=== PATIENT | male | born 1965 | race Caucasian/White ===

== ENCOUNTER 2016-07-27 18:05 | Observation (INO) | payer BC ==
[~2016-07-27] VITALS: Ht 190.5 cm; Wt 95.6 kg
--- NOTE | ~2016-07-27 | DS ---
PATIENT'S NAME: HERIBERTO BENITEZ [facility] AGE: 51 Y [address] ROOM: [place] [address] LOCATION: G3N ADMIT DATE: 07/27/2016 Discharge Summary DISCHARGE DATE: FAMILY PHYSICIAN: Momo Mandel MD ATTENDING PHYSICIAN: Momo Mandel FINAL DIAGNOSES: 1. Cellulitis, long finger, palmar surface, right hand, status post incision and drainage and washout, 07/27/2016, per Dr. Riley Lo. 2. Hypertension, essential. 3. Bradycardia. 4. Elevated TSH. We will workup as an outpatient. HOSPITAL COURSE: The patient was admitted with an infection in his involved finger. Please see history and physical. Please see consultative notes and operative note per Dr. Riley Lo, orthopedic surgeon. I see the patient today at dismissal. His finger is in a gauze wrap. He is doing well. His pain is controlled. He has received IV antibiotics since admission. If Dr. Lo feels the patient can be dismissed later today, the patient will go home and Dr. Lo will pick an antibiotic regimen. The patient will follow up with Dr. Lo and regarding infection and should see me back in a couple weeks. I am going to discuss his mild elevation of his TSH. MOMO MANDEL MD CONSTRUCTION SAFETY MANAGER/modl /[id number] d: 07/28/16 0904 t: 08/02/16 1835, DISCHARGE SUMMARY
--- NOTE | ~2016-07-27 | HP ---
PATIENT'S NAME: HERIBERTO BENITEZ [facility] AGE: 51 Y [address] ROOM: [address] [place], [place] [address] LOCATION: G3N ADMIT DATE: 07/27/2016 History & Physical DISCHARGE DATE: FAMILY PHYSICIAN: MOMO GILLIS MD ATTENDING PHYSICIAN: MOMO GILLIS DATE OF SERVICE: 07/27/2016 CHIEF COMPLAINT: Swollen sore right long finger. HISTORY OF PRESENT ILLNESS: Heriberto is a -oxnq-hra white male who is admitted at this time with a swollen, erythematous right long finger. Historically, the patient several months ago injured this area of his right long finger at the PIP joint. At that time, there was an injury to his fingers that broke the skin, but nothing else evolved. In the last 36 hours, he has developed erythema and swelling in the area of the PIP joint going proximal towards the MP joint of his right long finger. He saw me in the office this morning, the day of admission at approximately 10 a.m. At that time, he gave no history of MRSA, no history of new trauma. His immunizations are up to date, and he did not want to be admitted. So at that time, I did a plain film x-ray that showed no gas under the skin and no foreign body, no bony abnormality. Because of no history of MRSA, I gave him a gram of Rocephin and told him to follow up with me if he did not get better or if he did develop increasing pain or redness. He called me at the end of the day at approximately 5:30 in the evening stating that his pain was worse in the involved finger of the right hand. He sent me a picture that showed increasing erythema and swelling and a little bit of redness now, that was coming over the dorsal aspect of the right long finger MP joint. Because of that, I told him we should have him admitted to the hospital. Originally, I called Isai Huitron with the Orthopedic Surgeons to have him see the patient. After talking to the patient and after he was admitted, he wanted to see someone from [facility]. So I consulted Dr. Riley Lo and sent him a picture of the patient's finger both from the morning and the afternoon. Dr. Lo recommended that we get blood work and obtain an MRI to rule out an abscess or tendon involvement. The patient understands. PATIENT'S NAME: [facility] AGE: 51 Y [address] ROOM: [place] [address] LOCATION: [facility] ADMIT DATE: 07/27/2016 History & Physical DISCHARGE DATE: FAMILY PHYSICIAN: MOMO GILLIS MD ATTENDING PHYSICIAN: MOMO GILLIS After admission, the patient was seen by Dr. Lo, and Dr. Lo after reviewing the patient's MRI has taken the patient to the operating room this evening to wash out the area of the involved finger. Please see MRI report. CURRENT MEDICATIONS: He got Rocephin today. ALLERGIES: SEE NURSE'S NOTES. PREVIOUS OPERATIONS: See old records. SOCIAL HISTORY: Does not smoke. FAMILY HISTORY: Negative for problems with general anesthesia or bleeding disorder. REVIEW OF SYSTEMS: HEENT: Exam benign. NECK: Unremarkable. ENDOCRINE: No history of thyroid disease or diabetes mellitus. HEART: History of hypertension and bradycardia. GI: No recent nausea, vomiting, or diarrhea. : No dysuria or frequency. EXTREMITIES: As mentioned. NEUROLOGIC: No history of seizure or syncope. PHYSICAL EXAMINATION: GENERAL: Dark-haired male who appears his stated age, in no apparent distress. Oriented to person, place, and time. He is competent. HEENT: Exam shows pupils react to light. TMs not visualized. Posterior pharynx is clear. NECK: Unremarkable. Thyroid enlarged. LUNGS: Clear. HEART: No murmur. Regular rhythm. ABDOMEN: Benign. PELVIC AND RECTAL: Not done. EXTREMITIES: Right long finger as described above. No ascending signs of infection. NEUROLOGIC: Grossly intact. Mental status normal for age. PATIENT'S NAME: ELI, [facility] AGE: 51 Y [address] ROOM: [address] [address] LOCATION: [facility] ADMIT DATE: 07/27/2016 History & Physical DISCHARGE DATE: FAMILY PHYSICIAN: MOMO GILLIS MD ATTENDING PHYSICIAN: MOMO GILLIS ASSESSMENT: 1. Cellulitis and possible early abscess, right long finger palmar aspect between the MP joint and IP joint of the involved finger. 2. Hypertension, essential. 3. Bradycardia, asymptomatic. PLAN: As above. MD STEVAN BARTON/reilly /[id number] D: [id number] T: [id number] HISTORY & PHYSICAL
--- NOTE | ~2016-07-27 | OR ---
PATIENT'S NAME: HERIBERTO JOHNSON [facility] AGE: 51 Y [address] ROOM: [address] [place], [place] [address] LOCATION: G3N ADMIT DATE: 07/27/2016 OR/Procedure Report DISCHARGE DATE: FAMILY PHYSICIAN: MOMO GILLIS MD ATTENDING PHYSICIAN: MOMO GILLIS SURGEON: Riley Lo MD SOFTWARE SPECIALIST: None. DATE OF PROCEDURE: 07/27/2016 PREOPERATIVE DIAGNOSIS: Right middle finger abscess. POSTOPERATIVE DIAGNOSIS: Right middle finger abscess. PROCEDURE: Right middle finger abscess irrigation and debridement as well as drain placement. TOURNIQUET: None. ANESTHESIA: MAC anesthesia with propofol in addition to 5 mL of 1% lidocaine plain. SPECIMENS: Aerobic and anaerobic cultures x1 each. DRAINS: A vessel loop x1. COMPLICATIONS: None. INDICATIONS: Heriberto Johnson is a 51-year-old male. He presented to his primary care physician earlier today, complaining of right hand pain, swelling, and redness. X-rays were normal at his primary care physician's office. He was treated conservatively and the swelling persisted as did the erythema. At that point, he was admitted by his primary care physician. Labs revealed a normal white blood cell count and a normal ESR. An MRI did show an abscess over the middle finger of that right hand as well as cellulitis. At this point, given the acute onset of his symptoms, I talked about conservative treatment with antibiotics. I also talked to him about the role of surgery in the form of irrigation and debridement. Given his acute onset of symptoms and the rapid spreading of that erythema, I thought that an I and D would provide the best benefit. I talked about the risk of bleeding, infection, damage to surrounding structures, as well as the potential need for future surgery. He had had a puncture wound to this digit approximately a year ago, but then it went on to heal uneventfully, he had not had any problems or sequelae since then. We talked about the risk of anesthesia including heart attack, stroke, pneumonia, and . He elected to proceed with surgery. PATIENT'S NAME: HERIBERTO JOHNSON [facility] AGE: 51 Y [address] ROOM: [address] [place], [place] [address] LOCATION: G3N ADMIT DATE: 07/27/2016 OR/Procedure Report DISCHARGE DATE: FAMILY PHYSICIAN: MOMO GILLIS MD ATTENDING PHYSICIAN: MOMO GILLIS DESCRIPTION OF THE PROCEDURE: Surgical marking pen was used to correctly identify the right middle finger as the surgical site. Consent was signed and dated. He was taken back to the operating room. He underwent a MAC anesthesia. A time-out was called by myself. During the time-out, the patient, the procedure to be performed, the antibiotics that he had received upon the floor were reviewed and the plan was reviewed. At this point, the right upper extremity was then prepped and draped in standard sterile fashion. Undergone MAC anesthesia. I took 25-gauge needle with a 1% lidocaine plain and I injected it there over the ulnar aspect of the middle phalanx, more on the volar side of that middle finger. As I injected into that skin area, I was able to see purulence track out through that puncture wound, which was just proximal to the volar crease of the PIP joint, that is where he had that puncture wound of approximately 1 year earlier and as I squeezed on the location of that abscess, pus came out through the puncture site. At that point, I then used a 10 blade scalpel to make a stab incision over the volar and ulnar aspect of that proximal phalanx. I spread down with a hemostat and gross purulence came out. Both aerobic and anaerobic cultures were obtained. I then was able to irrigate this thoroughly with 500 mL of normal saline through a 20 mL syringe. As I irrigated through the newly created incision site, I was seeing that the fluid would flush out through that puncture site a year ago. At this point, I curetted that puncture site and placed 2-0 nylon sutures trying to get that to seal up and heal, as I felt like it had kind of epithelialized almost into a pouch or a fistula tract. I then went ahead and placed a vessel loop drain of approximately 1 inch in length into the incision. I then placed a dressing in the form of Xeroform, 4x4s, and then a well-padded and well-molded AlumaFoam splint. He was transferred to the recovery room in stable condition where he was found to be neurovascularly intact. He tolerated the procedure well. MD JENNIFER DOUGLAS/reilly /[id number] d: 07/28/16 0138 t: 08/04/16 2142, OPERATIVE SUMMARY
--- NOTE | ~2016-07-27 | CON ---
PATIENT'S NAME: HERIBERTO JOHNSON [facility] AGE: 51 Y [address] ROOM: [place] [address] LOCATION: G3 ADMIT DATE: 07/27/2016 Consultation DISCHARGE DATE: FAMILY PHYSICIAN: MOMO MANDEL MD ATTENDING PHYSICIAN: MOMO MANDEL REFERRING PHYSICIAN: BECKY DO MD REQUESTING CONSULTING PHYSICIAN: Momo Mandel MD. REASON FOR CONSULTATION: Right hand pain. HISTORY OF PRESENT ILLNESS: Heriberto Johnson is a 51-year-old, [id number] male who presented to his primary care physician's office earlier today complaining of right hand pain and swelling. He was found at that time by the primary care doctor to have some redness as well as some induration over that right middle finger. Did not seem to involve the flexor tendon. X-rays were obtained in his primary care physician's office, which did not reveal any foreign bodies. He was treated conservatively, but according to the patient, the redness progressed onto the dorsum of the hand. For that reason, he was admitted by his primary care doctor. An MRI was obtained concerning for an abscess and thus Orthopedics was consulted. He did report to me that he did have a prior puncture wound to the volar aspect of the proximal phalanx of this right middle finger approximately a year ago. It went on to seal up on its own. He did not receive medical treatment for that puncture wound. No prior problems. He has had a great strength in this right hand since that injury. He denies any other skin abscesses. He denies any fevers or chills. He denies any numbness or tingling into the hand, and he likewise denies any sinusitis. PAST MEDICAL HISTORY: 1. Hypertension. 2. Hyperlipidemia. 3. He has had a workup for a potential arrhythmia, but it came back negative per the patient's report. ALLERGIES: ERYTHROMYCIN. SOCIAL HISTORY: He denies any tobacco use, occasional alcohol consumption, and denies any PATIENT'S NAME: HERIBERTO JOHNSON [facility] AGE: 51 Y [address] ROOM: [place] [address] LOCATION: [facility] ADMIT DATE: 07/27/2016 Consultation DISCHARGE DATE: FAMILY PHYSICIAN: MOMO MADNEL MD ATTENDING PHYSICIAN: MOMO MANDEL illicit drug use. No history of MRSA. FAMILY HISTORY: Reviewed and is noncontributory. MEDICATIONS: Per the intake record. REVIEW OF SYSTEMS: As per the HPI. A 14-point review of systems was conducted and is negative. PHYSICAL EXAMINATION: GENERAL: This is a 51-year-old, male. He appears his stated age. He is awake, he is alert, he is oriented to person, place, and time. Normal mood and affect. Normal appearance and hygiene. HEAD: Normocephalic, atraumatic. LUNGS: Unlabored respirations on room air. ABDOMEN: Nondistended. AND RECTAL: Deferred. MUSCULOSKELETAL: Left upper extremity: The skin is intact. There is no erythema, there is no ecchymosis, and there is no induration. He has no pain over the left collarbone, left shoulder, left elbow, or left wrist. 5/5 limousine rental clerk strength. No abscesses are present. Good capillary refill. Median, ulnar, and radial nerves are intact distally. Right upper extremity: The skin is intact. He does have an area of induration over the ulnar aspect of the proximal phalanx of that right middle digit. There is an area of fluctuance deep to this and erythema extends over the ulnar half of the proximal phalanx with a little bit of extension onto the dorsal aspect. He has a good capillary refill distally. He has 90 degrees of MCP flexion and 80 degrees of PIP flexion without any significant pain. He is able to be taken into terminal extension without any pain. No varus or valgus instability noted. He has no pain with compression of that flexor tendon there in the palm and likewise no pain with palpation along the extensor tendon. The area of fluctuance is confined to the soft tissues over the ulnar aspect of that digit. PLAN: At this point, we are waiting on labs to come back. He denies any fevers or chills. Primary care physician has ordered a CBC which showed white blood cell count of 7.7 and ESR of 3. BMP was unremarkable. At this point, an MRI has been obtained, which did show a fluid collection, but no abscess and also some superficial edema new accounts banking representative of some cellulitis over that proximal phalanx. Given the findings of this MRI, I think he does have an abscess. I think it PATIENT'S NAME: HERIBERTO JOHNSON [facility] AGE: 51 Y [address] ROOM: [address] [place], [place] [address] LOCATION: G3N ADMIT DATE: 07/27/2016 Consultation DISCHARGE DATE: FAMILY PHYSICIAN: MOMO MANDEL MD ATTENDING PHYSICIAN: MOMO MANDEL is most likely secondary to the trauma that he experienced approximately a year ago. I did not see any foreign bodies on the MRI. At this point, we are going to take him back to surgery and do an irrigation and debridement of that abscess/fluid collection. Cultures will be obtained and sent off to the lab. Plan on placing a drain in place. I talked to him about the risk of infection, bleeding, damage to surrounding structures, as well as the potential need for future surgery. I talked to him about the risk of this infection spreading. Talked about the needing for potential future surgery for the same thing. We also talked about the risk of anesthesia including heart attack, stroke, pneumonia, and . He ultimately accepts these risks and is willing to proceed. EBCKY MD JENNIFER GONZALEZ/reilly /[id number] d: 07/28/16 0124 t: 08/04/16 2134, CONSULTATION REPORT
[2016-07-27] MEDS ORDERED: LIPITOR10 MG PO (18:50)
[2016-07-27] MEDS ORDERED: FLOMAX0.4 MG PO (18:51)
[2016-07-27] MEDS ORDERED: ASPIRIN LO-DOSE81 MG PO (18:52)
[2016-07-27] MEDS ORDERED: MICARDIS40 MG PO (18:52)
[2016-07-27] MEDS ORDERED: MEN'S ONE DAIL1 EACH PO (18:53)
[2016-07-27] MEDS ORDERED: GLUCOSAMINE CH1 EAC2 PO (18:54)
[2016-07-27] MEDS ORDERED: FISH OIL 1,0001 EACH PO (18:54)
[2016-07-27 19:48] LABS: BASOPHIL % 0.4 %; EOSINOPHIL # 0.1 K/uL (0.0-0.5); EOSINOPHIL % 1.3 %; HEMATOCRIT 46.6 % (37.0-53.0); HEMOGLOBIN 15.8 g/dL (12.0-17.0); IMMATURE GRANULOCYTE % 0.3 %; LYMPHOCYTE # 1.3 K/uL (0.8-4.0); LYMPHOCYTE % 17.1 %; MCH 29.7 pg (27.0-34.0); MCHC 33.9 gm/dL (32.0-36.5); MCV 87.6 fl (83.0-98.0); MONOCYTE # 0.5 K/uL (0.0-1.0); MONOCYTE % 6.8 %; MPV 10.3 fl (9.4-12.4); NEUTROPHIL # (ANC) 5.7 K/uL (1.4-9.0); NEUTROPHIL % 74.1 %; NRBC % 0 /100WBC (0-0.00); PLATELET COUNT 198 K/uL (150-450); RBC 5.32 M/uL (4.00-6.00); RDW-CV 11.7 % (11.9-14.6); WBC 7.7 K/uL (4.0-11.0)
[2016-07-27 20:05] LABS: ALBUMIN 4.1 gm/dL (3.5-5.0); ALK PHOS 95 IU/L (33-138); ALT 42 IU/L (12-78); ANION GAP 14.3 (10.0-19.0); AST 58 IU/L (10-40); BLOOD UREA NITROGEN 20 mg/dL (6-24); CALCIUM 8.9 mg/dL (8.5-10.5); CHLORIDE 107 mMol/L (96-110); CO2 26 mMol/L (22-32); CREATININE 1.1 mg/dL (0.6-1.3); ESTIMATED GFR (MDRD EQUATION) > 60; POTASSIUM 4.3 mMol/L (3.7-5.1); SODIUM 143 mMol/L (135-145); TOTAL BILIRUBIN 0.5 mg/dL (0.0-1.5); TOTAL PROTEIN 6.9 g/dL (6.0-8.4)
== END 2016-07-28 12:15 | disposition disaster alternative care site (69) ==
LOC: G3N 18:06
PROVIDERS: ADMIT Family Medicine
PROC: 0J9K0ZZ Drainage of Left Hand Subcutaneous Tissue and Fascia, Open Approach (ICD-10-PCS; principal; 2016-07-27)
PROC: 0X9J00Z Drainage of Right Hand with Drainage Device, Open Approach (ICD-10-PCS; 2016-07-27)
DX: L02.511 Cutaneous abscess of right hand (principal); I49.9 Cardiac arrhythmia, unspecified; I10 Essential (primary) hypertension; E78.5 Hyperlipidemia, unspecified; R00.1 Bradycardia, unspecified; R94.6 Abnormal results of thyroid function studies; Z88.1 Allergy status to other antibiotic agents; Z79.82 Long term (current) use of aspirin; Z79.899 Other long term (current) drug therapy
CPT/HCPCS: G0378; G0379; J2405; J3010; J3370; J7040; J7120